=== PATIENT | male | born 1970 | race Caucasian/White ===

== ENCOUNTER 2024-06-10 00:02 | Inpatient (IN) | payer BC, MEDICAID ==
[2024-06-10] VITALS (20 sets, daily range): BP systolic 142–179; BP diastolic 65–103; PULSE 62–98; RESP 15–34; TEMP 36.78072–38.0586; O2SAT 95–100
[~2024-06-10] VITALS: Ht 157.5 cm; Wt 67.1 kg
[2024-06-10 00:38] LABS: BASOPHILS % 0.7 % (0.0-2.0); EOSINOPHILS % 2.4 % (0.0-5.0); HEMATOCRIT. 27.5 % (42.0-52.0); HEMOGLOBIN. 9.1 g/dL (14.0-18.0); LYMPHOCYTES % 15.3 % (20.0-50.0); MEAN CORPUSCULAR HEMOGLOBIN 28.8 pg (28.0-32.0); MEAN CORPUSCULAR HGB CONC 33.1 g/dL (31.0-37.0); MEAN PLATELET VOLUME 7.9 fl (7.4-10.4); MONOCYTES % 8.7 % (2.0-8.0); NEUTROPHILS % 72.9 % (40.0-76.0); PLATELET 105 x1000/uL (130-400); RED BLOOD CELL COUNT 3.16 mill/uL (4.7-6.1); RED CELL DISTRIBUTION WIDTH 16.3 % (11.6-14.6)
[2024-06-10 00:43] LABS: INR 1.1; PARTIAL THROMBOPLASTIN TIME 33.6 sec (23.4-31.0); PROTHROMBIN TIME 12.1 sec (9.6-11.0)
[2024-06-10 00:47] LABS: CHLORIDE 101 mEq/L (98-107); POTASSIUM 4.8 mEq/L (3.5-5.1); SODIUM 139 mEq/L (136-145)
[2024-06-10 00:48] LABS: CALCIUM 9.2 mg/dL (8.7-10.4); CARBON DIOXIDE 24 mEq/L (21-32)
[2024-06-10 00:53] LABS: GLUCOSE 170 mg/dL (70-105); TROPONIN I HIGH SENSITIVITY 32 ng/L (3.0-53); UREA NITROGEN BLOOD 91 mg/dL (9-23)
[2024-06-10] MEDS: HYDRALAZINE 20MG/ML VIAL IV NR ×2 (01:00→01:53)
[2024-06-10 01:10] LABS: ETHANOL BLOOD < 10 mg/dL (<10)
[2024-06-10 01:11] LABS: CREATININE 11.5 mg/dL (0.6-1.3)
[2024-06-10] MEDS: LORAZEPAM 2MG/ML INJ IV NR (01:57)
[2024-06-10] MEDS: NITROGLYCERIN 0.4MG/HR PATCH TOP NR (02:07)
[2024-06-10] MEDS ORDERED: OMEPRAZOLE 20MG CAPSULE EXTENDED RELEASE PO SCH (07:30)
[2024-06-10] MEDS ORDERED: MAGNESIUM/ALUMINUM HYDROXIDE/SIMETHICONE 30ML UDC PO PRN (07:30)
[2024-06-10] MEDS ORDERED: HYDROCODONE/ACETAMINOPHEN 5/325MG TABLET PO PRN (07:30)
[2024-06-10] MEDS ORDERED: DOCUSATE SODIUM 100MG CAPSULE PO PRN (07:30)
[2024-06-10] MEDS ORDERED: DEXTROSE 50% WATER 50ML SYRINGE IV PRN ×2 (07:30)
[2024-06-10] MEDS: BLOOD SUGAR DIAGNOSTIC STRIP TEST SCH (07:30)
[2024-06-10] MEDS ORDERED: ONDANSETRON HCL 4MG/2ML INJ IV PRN (07:30)
[2024-06-10] MEDS: INSULIN LISPRO 100 UNITS/ML SUBCUT SCH (08:00)
[2024-06-10] MEDS: ENOXAPARIN 30MG/0.3ML SYR SUBCUT SCH (08:27)
[2024-06-10] MEDS: CLONIDINE 0.1MG TABLET PO PRN (08:28)
[2024-06-10] MEDS: PANTOPRAZOLE 40MG DR TABLET PO SCH (08:28)
[2024-06-10] MEDS: ACETAMINOPHEN 325MG TABLET PO PRN (08:29)
[2024-06-10 13:48] LABS: HEPATITIS B SURFACE ANTIGEN NEGATIVE (Negative)
[2024-06-10 14:08] LABS: HEPATITIS A AB IGM NEGATIVE (Negative)
[2024-06-10 14:09] LABS: HEPATITIS B CORE AB IGM NEGATIVE (Negative); HEPATITIS C AB NON REACTIVE (Neg) (Negative)
[2024-06-11] VITALS (12 sets, daily range): BP systolic 162–181; BP diastolic 86–113; PULSE 77–99; RESP 11–22; TEMP 36.55848–37.05852; O2SAT 91–98
[2024-06-11 06:32] LABS: BASOPHILS % 0.8 % (0.0-2.0); EOSINOPHILS % 3.3 % (0.0-5.0); HEMATOCRIT. 26.4 % (42.0-52.0); HEMOGLOBIN. 8.8 g/dL (14.0-18.0); LYMPHOCYTES % 19.3 % (20.0-50.0); MEAN CORPUSCULAR HEMOGLOBIN 29.4 pg (28.0-32.0); MEAN CORPUSCULAR HGB CONC 33.4 g/dL (31.0-37.0); MEAN CORPUSCULAR VOLUME 87.8 fL (80.0-94.0); MEAN PLATELET VOLUME 8.4 fl (7.4-10.4); MONOCYTES % 7.4 % (2.0-8.0); NEUTROPHILS % 69.2 % (40.0-76.0); PLATELET 87 x1000/uL (130-400); RED BLOOD CELL COUNT 3.01 mill/uL (4.7-6.1); RED CELL DISTRIBUTION WIDTH 15.8 % (11.6-14.6); WHITE BLOOD COUNT 4.3 x1000/uL (4.5-11.0)
[2024-06-11 06:39] LABS: CHLORIDE 102 mEq/L (98-107); POTASSIUM 4.7 mEq/L (3.5-5.1); SODIUM 139 mEq/L (136-145)
[2024-06-11 06:40] LABS: CALCIUM 9.2 mg/dL (8.7-10.4); CARBON DIOXIDE 25 mEq/L (21-32)
[2024-06-11 06:44] LABS: TROPONIN I HIGH SENSITIVITY 27 ng/L (3.0-53)
[2024-06-11 06:45] LABS: GLUCOSE 129 mg/dL (70-105); TRIGLYCERIDE 59 mg/dL (0-150); UREA NITROGEN BLOOD 68 mg/dL (9-23)
[2024-06-11 06:46] LABS: LDL CHOLESTEROL 49 mg/dL (5-100)
[2024-06-11 06:47] LABS: ALANINE AMINOTRANSFERASE 10 IU/L (10-49); ALBUMIN 4.1 g/dL (3.2-4.8); ASPARTATE AMINOTRANSFERASE 13 IU/L (<34); BILIRUBIN DIRECT 0.2 mg/dL (<=3.0); BILIRUBIN TOTAL 0.4 mg/dL (0.1-1.0); CHOLESTEROL 90 mg/dL (<200); HDL CHOLESTEROL 33 mg/dL (>55); PHOSPHORUS 3.3 mg/dL (2.5-4.9); PROTEIN TOTAL 7.1 g/dL (6.0-8.3); T4 FREE 1.01 ng/dL (0.89-1.76)
[2024-06-11 06:48] LABS: THYROID STIMULATING HORMONE 1.77 uIU/mL (0.55-4.78)
[2024-06-11 06:55] LABS: CREATININE 9.7 mg/dL (0.6-1.3)
[2024-06-11] MEDS: FOLIC ACID/VITAMIN B COMP W-C TABLET PO SCH (08:51)
[2024-06-11] MEDS: SEVELAMER CARBONATE 800 MG TABLET PO SCH (09:02)
[2024-06-11] MEDS: AMLODIPINE 5MG TABLET PO SCH (14:50)
[2024-06-12] VITALS (21 sets, daily range): BP systolic 140–164; BP diastolic 80–113; PULSE 71–89; RESP 15–22; TEMP 36.3918–37.44744; O2SAT 97–100
[2024-06-12 05:37] LABS: BASOPHILS % 0.6 % (0.0-2.0); EOSINOPHILS % 3.5 % (0.0-5.0); HEMATOCRIT. 25.8 % (42.0-52.0); HEMOGLOBIN. 8.3 g/dL (14.0-18.0); LYMPHOCYTES % 20.9 % (20.0-50.0); MEAN CORPUSCULAR HEMOGLOBIN 28.4 pg (28.0-32.0); MEAN CORPUSCULAR HGB CONC 32.2 g/dL (31.0-37.0); MONOCYTES % 7.6 % (2.0-8.0); NEUTROPHILS % 67.4 % (40.0-76.0); PLATELET 95 x1000/uL (130-400); RED BLOOD CELL COUNT 2.93 mill/uL (4.7-6.1); RED CELL DISTRIBUTION WIDTH 15.9 % (11.6-14.6); WHITE BLOOD COUNT 4.6 x1000/uL (4.5-11.0)
[2024-06-12 05:45] LABS: CHLORIDE 100 mEq/L (98-107); POTASSIUM 5.2 mEq/L (3.5-5.1); SODIUM 137 mEq/L (136-145)
[2024-06-12 05:46] LABS: CALCIUM 9.2 mg/dL (8.7-10.4); CARBON DIOXIDE 21 mEq/L (21-32)
[2024-06-12 05:50] LABS: UREA NITROGEN BLOOD 88 mg/dL (9-23)
[2024-06-12 05:51] LABS: GLUCOSE 106 mg/dL (70-105)
[2024-06-12 05:53] LABS: ALANINE AMINOTRANSFERASE 7 IU/L (10-49); ALBUMIN 4.1 g/dL (3.2-4.8); ASPARTATE AMINOTRANSFERASE 12 IU/L (<34); BILIRUBIN DIRECT 0.2 mg/dL (<=3.0); BILIRUBIN TOTAL 0.3 mg/dL (0.1-1.0); PHOSPHORUS 2.9 mg/dL (2.5-4.9); PROTEIN TOTAL 6.8 g/dL (6.0-8.3)
[2024-06-12 06:06] LABS: CREATININE 11.7 mg/dL (0.6-1.3)
[2024-06-12] MEDS: DOXAZOSIN MESYLATE 2MG TABLET PO SCH (06:17)
[2024-06-12] MEDS: HYDRALAZINE HCL 50MG TABLET PO SCH (06:18)
[2024-06-13] VITALS (11 sets, daily range): BP systolic 122–159; BP diastolic 70–100; PULSE 67–98; RESP 14–21; TEMP 37.00296–37.11408; O2SAT 93–100
[2024-06-13 08:20] LABS: POTASSIUM 5.1 mEq/L (3.5-5.1)
[2024-06-13 08:21] LABS: CALCIUM 9.1 mg/dL (8.7-10.4)
[2024-06-13 08:45] LABS: CREATININE 9.6 mg/dL (0.6-1.3)
[2024-06-13] MEDS ORDERED: NALOXONE HCL 0.4MG/ML VIAL IV PRN (13:45)
[2024-06-14] VITALS (17 sets, daily range): BP systolic 142–163; BP diastolic 64–104; PULSE 90–111; RESP 14–24; TEMP 36.78072–37.28076; O2SAT 96–99
[2024-06-14 06:09] LABS: BASOPHILS % 0.6 % (0.0-2.0); EOSINOPHILS % 4.3 % (0.0-5.0); HEMATOCRIT. 27.1 % (42.0-52.0); HEMOGLOBIN. 8.8 g/dL (14.0-18.0); LYMPHOCYTES % 23.3 % (20.0-50.0); MEAN CORPUSCULAR HEMOGLOBIN 28.5 pg (28.0-32.0); MEAN CORPUSCULAR HGB CONC 32.6 g/dL (31.0-37.0); MEAN CORPUSCULAR VOLUME 87.3 fL (80.0-94.0); MEAN PLATELET VOLUME 8.9 fl (7.4-10.4); NEUTROPHILS % 62.8 % (40.0-76.0); PLATELET 113 x1000/uL (130-400); RED CELL DISTRIBUTION WIDTH 15.5 % (11.6-14.6); WHITE BLOOD COUNT 3.5 x1000/uL (4.5-11.0)
[2024-06-14 06:23] LABS: CALCIUM 9.2 mg/dL (8.7-10.4); POTASSIUM 5.1 mEq/L (3.5-5.1)
[2024-06-15] VITALS: BP 138/62; PULSE 90; RESP 18; TEMP 37.11408; O2SAT 98
[2024-06-15 04:00] VITALS: BP 172/106; PULSE 99; RESP 23; TEMP 36.83628; TEMP 37.16964; O2SAT 99
[2024-06-15] MEDS: HYDRALAZINE 20MG/ML VIAL IV PRN (04:24)
[2024-06-15 08:00] VITALS: BP 165/96; PULSE 102; RESP 16; TEMP 36.00288; O2SAT 99
[2024-06-15 12:00] VITALS: BP 135/96; PULSE 105; RESP 13; TEMP 36.9474; O2SAT 100
[2024-06-15 16:48] VITALS: BP 159/95; PULSE 101; RESP 18; TEMP 37.16964; O2SAT 97
[2024-06-15 20:00] VITALS: BP 172/96; PULSE 104; RESP 20; TEMP 36.89184; O2SAT 98
[2024-06-16] VITALS (12 sets, daily range): BP systolic 135–179; BP diastolic 59–99; PULSE 92–102; RESP 16–20; TEMP 36.3918–37.2252; O2SAT 97–100
[2024-06-16 06:33] LABS: CALCIUM 9.1 mg/dL (8.7-10.4); POTASSIUM 5.1 mEq/L (3.5-5.1)
[2024-06-16 07:10] LABS: BASOPHILS % 1.1 % (0.0-2.0); EOSINOPHILS % 4.4 % (0.0-5.0); HEMOGLOBIN. 8.7 g/dL (14.0-18.0); LYMPHOCYTES % 24.3 % (20.0-50.0); MEAN CORPUSCULAR HEMOGLOBIN 27.7 pg (28.0-32.0); MEAN CORPUSCULAR VOLUME 86.6 fL (80.0-94.0); MEAN PLATELET VOLUME 8.5 fl (7.4-10.4); MONOCYTES % 9.5 % (2.0-8.0); NEUTROPHILS % 60.7 % (40.0-76.0); PLATELET 127 x1000/uL (130-400); RED BLOOD CELL COUNT 3.12 mill/uL (4.7-6.1); RED CELL DISTRIBUTION WIDTH 15.7 % (11.6-14.6); WHITE BLOOD COUNT 3.6 x1000/uL (4.5-11.0)
[2024-06-16 07:37] LABS: CREATININE 11.4 mg/dL (0.6-1.3)
[2024-06-16] MEDS ORDERED: AMLO5TAB88 PO ×2 (13:25→14:58)
[2024-06-16] MEDS ORDERED: PANT40TA51 PO (13:25)
[2024-06-16] MEDS ORDERED: HYDR50TA39 PO ×2 (13:25→14:58)
[2024-06-16] MEDS ORDERED: DOXA-14 PO ×2 (13:25→14:58)
[2024-06-16] MEDS ORDERED: SEVE800T8 PO (14:58)
== END 2024-06-16 15:18 | disposition home or self-care (01) | DRG 640 ==
LOC: ER 00:02 → 5EST 01:54 → 7WST 06-15 15:15
PROVIDERS: ADMIT Family Medicine Adult Medicine; ATTEND Family Medicine Adult Medicine
PROC: 5A1D70Z Performance of Urinary Filtration, Intermittent, Less than 6 Hours Per Day (ICD-10-PCS; principal; 2024-06-10)
PROC: 5A09557 Assistance with Respiratory Ventilation, Greater than 96 Consecutive Hours, Continuous Positive Airway Pressure (ICD-10-PCS; 2024-06-10)
PROC: 5A1D70Z Performance of Urinary Filtration, Intermittent, Less than 6 Hours Per Day (ICD-10-PCS; 2024-06-12)
PROC: 5A1D70Z Performance of Urinary Filtration, Intermittent, Less than 6 Hours Per Day (ICD-10-PCS; 2024-06-14)
PROC: 5A1D70Z Performance of Urinary Filtration, Intermittent, Less than 6 Hours Per Day (ICD-10-PCS; 2024-06-16)
DX: E87.70 Fluid overload, unspecified (principal); J96.01 Acute respiratory failure with hypoxia; N18.6 End stage renal disease; J84.9 Interstitial pulmonary disease, unspecified; I12.0 Hypertensive chronic kidney disease with stage 5 chronic kidney disease or end stage renal disease; I16.0 Hypertensive urgency; Z20.822 Contact with and (suspected) exposure to COVID-19; D69.6 Thrombocytopenia, unspecified; E11.22 Type 2 diabetes mellitus with diabetic chronic kidney disease; E78.6 Lipoprotein deficiency; I51.7 Cardiomegaly; Z99.2 Dependence on renal dialysis
CPT/HCPCS: 36415; 71045; 80048; 80061; 80076; 80320; 82962; 83036; 83735; 83880; 84100; 84439; 84443; 84484; 85025; 86705; 86706; 86709; 87340; 87426; 90935; 93005; 93970; 94660; 99291; J0360; J1650; J1815; J2060; G0480